=== PATIENT | male | born 1980 ===

== ENCOUNTER 2021-05-21 18:39 | Emergency (ER) | payer OTHER ==
[2021-05-21] MEDS ORDERED: Potassium Chloride 20 MEQ Tab.ER PO ONE (20:35)
== END 2021-05-21 21:14 | disposition home or self-care (01) ==
LOC: JD.ED 18:39
DX: R42 Dizziness and giddiness (principal); H53.2 Diplopia
CPT/HCPCS: 36415; 70450; 80053; 82947; 84484; 85025; 85610; 85730; 93005; 99284; A9270; 93010; 99283